=== PATIENT | male | born 1960 | race Caucasian/White ===

== ENCOUNTER 2017-10-31 22:50 | Inpatient (IN) | payer MEDICARE ==
[~2017-10-31] VITALS: Ht 175.3 cm; Wt 78.7 kg
[~2017-10-31 22:50] MED LIST: ASPI325T; BACT800T5 PO; LORC10TA PO; ORPH100T PO; PRED10; PRED20 PO; TAB-TAB PO; TRAM50 PO
[2017-10-31 23:00] VITALS: O2SAT 98
[2017-10-31 23:03] VITALS: BP 162/77; PULSE 108; RESP 22; TEMP 98; O2SAT 97
[2017-10-31 23:07] VITALS: PULSE 115; RESP 22; O2SAT 96
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
[2017-10-31] MEDS ORDERED: RESP: ALBUTEROL 2.5 MG/IPRATROPIUM 0.5 MG NEB (SCH) INH ONE (23:15)
[2017-10-31] MEDS ORDERED: LORazepam 2 MG/ML VIAL IV PUSH ONE (23:15)
--- NOTE | 2017-10-31 23:23 | PD ---
Physical Exam Date Seen by Provider: Oct 31, 2017 Time Seen by Provider: 23:22 Narrative The patient is a 56-year-old male who was initially firewood by the mid-level provider. Please refer to the initial history, physical, diagnostic evaluation, and treatment modality plan. Data Data Last Documented VS Vital Signs Date Time Temp Pulse Resp B/P (MAP) Pulse Ox O2 Delivery O2 Flow Rate FiO2 11/01/17 01:17 98 Nasal Cannula 3.00 10/31/17 23:07 115 22 10/31/17 23:03 98.0 Orders Orders Complete Blood Count With Diff (10/31/17 23:) Comprehensive Metabolic Panel (10/31/17 23:) B-Type Natriuretic Peptide (10/31/17:) Act Partial Throm Time (Ptt) (10/31/17:) Prothrombin Time / Inr (Pt) (10/31/17:) Magnesium (Mg) (10/31/17 23:) Ckmb (Isoenzyme) Profile (10/31/17:) Troponin I (10/31/17 23:) Urinalysis - C+S If Indicated (10/31/17 23:) Blood Culture (10/31/17 23:) Iv Access Insert/Monitor (10/31/17 23:) Electrocardiogram (10/31/17:) Ecg Monitoring (10/31/17 23:) Oximetry (10/31/17 23:01) Oxygen Administration (10/31/17 23:) Chest, Single Ap (10/31/17 23:01) Albuterol-Ipratropium Neb (Duoneb Neb) (10/31/17 23:15) Lorazepam Inj (Ativan Inj) (10/31/17 23:15) Albuterol-Ipratropium Neb (Duoneb Neb) (10/31/17 23:15) Lactic Acid Sepsis Protocol (10/31/17 23:16) Morphine Inj (Morphine Inj) (10/31/17 23:45) Ondansetron Inj (Zofran Inj) (10/31/17 23:45) Resp Bipap / Cpap Non Invas Vt (10/31/17 ) Oseltamivir (Tamiflu) (11/01/17 00:00) Influenzae A/B Antigen (10/31/17 23:48) CKMB (10/31/17 23:10) CKMB% (10/31/17 23:10) Arterial Blood Gas (Abg) (11/01/17 00:37) Labs Laboratory Tests Test 10/31/17 23:10 10/31/17 23:18 11/01/17 00:37 White Blood Count 10.1 TH/MM3 Red Blood Count 4.73 MIL/MM3 Hemoglobin 13.9 GM/DL Hematocrit 38.8 % Mean Corpuscular Volume 82.1 FL Mean Corpuscular Hemoglobin 29.3 PG Mean Corpuscular Hemoglobin Concent 35.8 % Red Cell Distribution Width 14.3 % Platelet Count 226 TH/MM3 Mean Platelet Volume 7.8 FL Neutrophils (%) (Auto) 83.2 % Lymphocytes (%) (Auto) 7.9 % Monocytes (%) (Auto) 8.3 % Eosinophils (%) (Auto) 0.1 % Basophils (%) (Auto) 0.5 % Neutrophils # (Auto) 8.4 TH/MM3 Lymphocytes # (Auto) 0.8 TH/MM3 Monocytes # (Auto) 0.8 TH/MM3 Eosinophils # (Auto) 0.0 TH/MM3 Basophils # (Auto) 0.1 TH/MM3 CBC Comment DIFF FINAL Differential Comment Prothrombin Time 10.8 SEC Prothromb Time International Ratio 1.1 RATIO Activated Partial Thromboplast Time 26.8 SEC Blood Urea Nitrogen 7 MG/DL Creatinine 0.91 MG/DL Random Glucose 117 MG/DL Total Protein 7.1 GM/DL Albumin 4.2 GM/DL Calcium Level 8.5 MG/DL Magnesium Level 1.8 MG/DL Alkaline Phosphatase 74 U/L Aspartate Amino Transf (AST/SGOT) 22 U/L Alanine Aminotransferase (ALT/SGPT) 30 U/L Total Bilirubin 1.2 MG/DL Sodium Level 137 MEQ/L Potassium Level 4.3 MEQ/L Chloride Level 101 MEQ/L Carbon Dioxide Level 27.9 MEQ/L Anion Gap 8 MEQ/L Estimat Glomerular Filtration Rate 86 ML/MIN Total Creatine Kinase 205 U/L Creatine Kinase MB 1.2 NG/ML Troponin I LESS THAN 0.02 NG/ML B-Type Natriuretic Peptide 54 PG/ML Lactic Acid Level 0.9 mmol/L Blood Gas Puncture Site RT RADIAL Blood Gas Patient Temperature 98.6 Blood Gas HCO3 24 mmol/L Blood Gas Base Excess -0.4 mmol/L Blood Gas Oxygen Saturation 95 % Arterial Blood pH 7.41 Arterial Blood Partial Pressure CO2 38 mmHg Arterial Blood Partial Pressure O2 96 mmHG Arterial Blood Oxygen Content 18.6 Vol % Arterial Blood Carboxyhemoglobin 2.2 % Arterial Blood Methemoglobin 0.7 % Blood Gas Hemoglobin 13.9 G/DL Oxygen Delivery Device BiPAP Blood Gas Ventilator Setting IPAP12/EPAP5 Blood Gas Inspired Oxygen 35 % [facility] Medical Record Reviewed: Yes Supervised Visit with MARY: Yes Interpretation(s) EKG reveals sinus tachycardia with a heart rate of 108. Nonspecific T-wave changes. Laboratory Tests Test 10/31/17 23:10 10/31/17 23:18 11/01/17 00:37 White Blood Count 10.1 TH/MM3 Red Blood Count 4.73 MIL/MM3 Hemoglobin 13.9 GM/DL Hematocrit 38.8 % Mean Corpuscular Volume 82.1 FL Mean Corpuscular Hemoglobin 29.3 PG Mean Corpuscular Hemoglobin Concent 35.8 % Red Cell Distribution Width 14.3 % Platelet Count 226 TH/MM3 Mean Platelet Volume 7.8 FL Neutrophils (%) (Auto) 83.2 % Lymphocytes (%) (Auto) 7.9 % Monocytes (%) (Auto) 8.3 % Eosinophils (%) (Auto) 0.1 % Basophils (%) (Auto) 0.5 % Neutrophils # (Auto) 8.4 TH/MM3 Lymphocytes # (Auto) 0.8 TH/MM3 Monocytes # (Auto) 0.8 TH/MM3 Eosinophils # (Auto) 0.0 TH/MM3 Basophils # (Auto) 0.1 TH/MM3 CBC Comment DIFF FINAL Differential Comment Prothrombin Time 10.8 SEC Prothromb Time International Ratio 1.1 RATIO Activated Partial Thromboplast Time 26.8 SEC Blood Urea Nitrogen 7 MG/DL Creatinine 0.91 MG/DL Random Glucose 117 MG/DL Total Protein 7.1 GM/DL Albumin 4.2 GM/DL Calcium Level 8.5 MG/DL Magnesium Level 1.8 MG/DL Alkaline Phosphatase 74 U/L Aspartate Amino Transf (AST/SGOT) 22 U/L Alanine Aminotransferase (ALT/SGPT) 30 U/L Total Bilirubin 1.2 MG/DL Sodium Level 137 MEQ/L Potassium Level 4.3 MEQ/L Chloride Level 101 MEQ/L Carbon Dioxide Level 27.9 MEQ/L Anion Gap 8 MEQ/L Estimat Glomerular Filtration Rate 86 ML/MIN Total Creatine Kinase 205 U/L Creatine Kinase MB 1.2 NG/ML Troponin I LESS THAN 0.02 NG/ML B-Type Natriuretic Peptide 54 PG/ML Lactic Acid Level 0.9 mmol/L Blood Gas Puncture Site RT RADIAL Blood Gas Patient Temperature 98.6 Blood Gas HCO3 24 mmol/L Blood Gas Base Excess -0.4 mmol/L Blood Gas Oxygen Saturation 95 % Arterial Blood pH 7.41 Arterial Blood Partial Pressure CO2 38 mmHg Arterial Blood Partial Pressure O2 96 mmHG Arterial Blood Oxygen Content 18.6 Vol % Arterial Blood Carboxyhemoglobin 2.2 % Arterial Blood Methemoglobin 0.7 % Blood Gas Hemoglobin 13.9 G/DL Oxygen Delivery Device BiPAP Blood Gas Ventilator Setting IPAP12/EPAP5 Blood Gas Inspired Oxygen 35 % Last Impressions Chest X-Ray 10/31/172300 Signed Impressions: Service Date/Time: Tuesday, October 31, 2017 23:11 - CONCLUSION: Mild hyperinflation with no acute cardiac pulmonary disease. Jimmie De La Cruz MD Date/Time Source Procedure Growth Status 10/31/17 23:10 Blood Peripheral Aerobic Blood Culture Pending Received 10/31/17 23:10 Blood Peripheral Anaerobic Blood Culture Pending Received 10/31/17 23:10 Blood Peripheral Aerobic Blood Culture Pending Received 10/31/17 23:10 Blood Peripheral Anaerobic Blood Culture Pending Received 11/01/17 00:07 Nasal Aspirate Influenza Types A,B Antigen (ESVIN) - Final Positive For Flu A Antigen Complete Differential Diagnosis Differential diagnosis includes COPD exacerbation, influenza, pneumonia, bronchitis, pulmonary embolism, ARDS, pleural effusion, congestive heart failure , pulmonary edema. Narrative Course The patient was initially evaluated by the mid-level provider. Please refer to the initial history, physical, diagnostic evaluation, and treatment modality plan. Patient was personally evaluated by myself at 11:35 PM. The patient was diagnosed with the flu by Dr. Antony in [facility] earlier today. The patient shortness of breath started at 4 and has progressed. The patient does have a history of COPD and tobacco use. He does note increasing shortness of breath with a dry cough. He also complains of low back pain. He does state he has been intubated in the past. The patient's lung sounds were diminished throughout, tight, with prolonged expiratory phase. The patient was tachypneic with a respiratory rate of 32, moderate respiratory distress after duo nebs, therefore, was placed on BiPAP. The patient did improve with BiPAP, influenza screen is positive for influenza A. The patient has COPD with sirs criteria, will be admitted. Sepsis Criteria SIRS Criteria (2 or more): Heart rate over 90, RR > 20 or PaCO2 < 32 Sepsis Criteria (SIRS+source): Infect source susp/known Criteria Outcome: Meets SIRS criteria Physician Communication Physician Communication The on-call medical service was paged for admission. I discussed the patient with Dr. Mckeon who agrees with admission. Diagnosis Primary Impression: Respiratory distress Additional Impressions: COPD exacerbation Influenza Admitting Information Admitting Physician Requests: Admit Condition: Stable Armani Sheriff MD Oct 31, 2017 23:23
[2017-10-31 23:30] LABS: AUTOMATED NEUTROPHIL # 8.4 TH/MM3 (1.8-7.7); BASOPHIL # 0.1 TH/MM3 (0-0.2); BASOPHIL % 0.5 % (0.0-2.0); EOSINOPHIL % 0.1 % (0.0-4.0); HEMATOCRIT 38.8 % (39.0-51.0); HEMOGLOBIN 13.9 GM/DL (13.0-17.0); LYMPH % 7.9 % (9.0-44.0); LYMPHOCYTE # 0.8 TH/MM3 (1.0-4.8); MEAN CELL VOLUME 82.1 FL (80.0-100.0); MEAN CORPUSCULAR HEMOGLOBIN 29.3 PG (27.0-34.0); MEAN CORPUSCULAR HGB CONC 35.8 % (32.0-36.0); MEAN PLATELET VOLUME 7.8 FL (7.0-11.0); MONO % 8.3 % (0.0-8.0); MONOCYTE # 0.8 TH/MM3 (0-0.9); NEUT % 83.2 % (16.0-70.0); PLATELET COUNT 226 TH/MM3 (150-450); RED BLOOD COUNT 4.73 MIL/MM3 (4.50-5.90); RED CELL DISTRIBUTION WIDTH 14.3 % (11.6-17.2); WHITE BLOOD COUNT 10.1 TH/MM3 (4.0-11.0)
[2017-10-31 23:37] LABS: INTERNATIONAL NORMALIZED RATIO 1.1 RATIO; PROTHROMBIN TIME - PATIENT 10.8 SEC (9.8-11.6)
[2017-10-31] MEDS ORDERED: ONDANSETRON HCL 4 MG/2 ML VIAL IV PUSH ONE (23:45)
[2017-10-31] MEDS ORDERED: MORPHINE SULFATE 4 MG/ML INJ IV PUSH ONE (23:45)
[2017-10-31 23:47] LABS: ALBUMIN 4.2 GM/DL (3.4-5.0); ALT (GPT) 30 U/L (12-78); AST (GOT) 22 U/L (15-37); BICARBONATE 27.9 MEQ/L (21.0-32.0); BLOOD UREA NITROGEN 7 MG/DL (7-18); CALCIUM 8.5 MG/DL (8.5-10.1); CHLORIDE 101 MEQ/L (98-107); CREATININE 0.91 MG/DL (0.60-1.30); GLOMERULAR FILTRATION RATE 86 ML/MIN (>89); GLUCOSE,RANDOM 117 MG/DL (74-106); MAGNESIUM 1.8 MG/DL (1.5-2.5); SODIUM (NA) 137 MEQ/L (136-145)
[2017-10-31 23:51] LABS: ALKALINE PHOSPHATASE 74 U/L (45-117); TOTAL BILIRUBIN ADULT 1.2 MG/DL (0.2-1.0); TOTAL PROTEIN 7.1 GM/DL (6.4-8.2); TROPONIN I LESS THAN 0.02 NG/ML (0.02-0.05)
[2017-11-01] MEDS ORDERED: OSELTAMIVIR PHOSPHATE 75 MG CAP PO ONE
--- NOTE | 2017-11-01 00:29 | RADRPT ---
EXAM DATE/TIME: 10/31/2017 23:11 [place] COMPARISON: No previous studies available for comparison. INDICATIONS : Short of breath. MEDICAL HISTORY : None. SURGICAL HISTORY : None. ENCOUNTER: Initial ACUITY: 1 day PAIN SCORE: 0/10 LOCATION: Bilateral chest FINDINGS: A single AP portable erect view of the chest was obtained. The patient is slightly rotated. Lungs adi ear mildly hyperinflated with no confluent fractures or effusions. The heart size is within normal li mits with no perihilar edema. Overlying electrocardiogram leads and oxygen tubing are present. CONCLUSION: Mild hyperinflation with no acute cardiac pulmonary disease. Jimmie De La Cruz MD on November 01, 2017 at 0:27 Board Certified Radiologist. This report was verified electronically.
[2017-11-01 01:17] VITALS: O2SAT 98
[2017-11-01] MEDS ORDERED: ZOLP10TA3 PO (01:35)
[2017-11-01] MEDS ORDERED: LEVO500T8 PO (01:35)
[2017-11-01] MEDS ORDERED: VORT1TAB2 PO (01:35)
[2017-11-01] MEDS ORDERED: OSEL75 PO (01:37)
[2017-11-01] MEDS ORDERED: HYDR-3366 PO (01:37)
[2017-11-01] MEDS ORDERED: GABA300C5 PO (01:38)
[2017-11-01] MEDS ORDERED: RESP: ALBUTEROL 2.5 MG/3 ML NEB (PRN) INH (01:45)
[2017-11-01] MEDS ORDERED: SODIUM CHLORIDE 0.9% FLUSH 10 ML FLUSH IV FLUSH PRN (01:45)
[2017-11-01] MEDS ORDERED: LEVOFLOXACIN 750 MG TAB PO SCH (02:00)
[2017-11-01] MEDS ORDERED: HEPARIN SODIUM - SQ 10,000 UNITS/ML VIAL SQ SCH ×2 (02:00→06:00)
--- NOTE | 2017-11-01 02:01 | HHI.HP ---
HPI Service [facility] Primary Care Physician Bandar Sutton MD Admission Diagnosis Diagnoses: Travel History International Travel<30 Days: No Contact w/Intl Traveler <30 Da: No Traveled to Known Affected Are: No History of Present Illness 56-year-old male with a past medical history significant for COPD, CAD and hyperlipidemia presents to the emergency department for evaluation of shortness of breath. The patient was seen by his primary care physician yesterday afternoon where he was diagnosed with the flu and started on Tamiflu. The patient reports that he began having difficulty breathing and was severely short of breath. He reports an increase in his cough from baseline since yesterday with increased sputum production. He also describes chest pain that began when he was driving back from his PCPs office. He states the chest pain is not worse with coughing. He denies fever/chills. Denies nausea/vomiting/ diarrhea. Review of Systems Except as stated in HPI: all other systems reviewed are Neg Past Family Social History Past Medical History COPD CAD Hyperlipidemia Depression Past Surgical History Bilateral knee surgeries Cardiac catheterization with stenting 2 Tonsillectomy Reported Medications Reported Meds & Active Scripts Active Reported Gabapentin 300 Mg Cap 300 Mg PO BID [place] (Hydrocodone-Acetaminophen) 10-325 Mg Tab 1 Tab PO Q6H PRN Tamiflu (Oseltamivir Phosphate) 75 Mg Cap 75 Mg PO DAILY Trintellix (Vortioxetine) 10 Mg Tab 10 Mg PO DAILY Levofloxacin 500 Mg Tablet 500 Mg PO DAILY Zolpidem (Zolpidem Tartrate) 10 Mg Tab 10 Mg PO HS Allergies: Coded Allergies: penicillin G (Unverified Allergy, Severe, THROAT CLOSES, 04/26/17) Family History Negative for CAD/DM Social History Smokes approximately 2 cigarettes per day. Denies alcohol and illicit drugs. Physical Exam Vital Signs Vital Signs Date Time Temp Pulse Resp B/P (MAP) Pulse Ox O2 Delivery O2 Flow Rate FiO2 11/01/17 01:17 98 Nasal Cannula 3.00 10/31/17 23:07 96 Nasal Cannula 3.00 10/31/17 23:07 115 22 96 Nasal Cannula 3.00 10/31/17 23:03 98.0 108 22 162/77 (105) 97 Room Air 10/31/17 23:00 98 Nasal Cannula 2.00 Physical Exam GENERAL: male sitting up in bed in mild distress SKIN: No rashes, ecchymoses or lesions. Cool and dry. HEAD: Atraumatic. Normocephalic. No temporal or scalp tenderness. EYES: Pupils equal round and reactive. Extraocular motions intact. No scleral icterus. No injection or drainage. ENT: Nose without bleeding, purulent drainage or septal hematoma. Throat without erythema, tonsillar hypertrophy or exudate. Uvula midline. Airway patent. NECK: Trachea midline. No JVD or lymphadenopathy. Supple, nontender, no meningeal signs. CARDIOVASCULAR: Regular rate and rhythm without murmurs, gallops, or rubs. RESPIRATORY: Use of accessory muscles. Bilateral wheezes. Decreased air movement. GASTROINTESTINAL: Abdomen soft, non-tender, nondistended. No hepato-splenomegaly , or palpable masses. No guarding. MUSCULOSKELETAL: Extremities without clubbing, cyanosis, or edema. No joint tenderness, effusion, or edema noted. No calf tenderness. NEUROLOGICAL: Awake and alert. Cranial nerves II through XII intact. Motor and sensory grossly within normal limits. Normal speech. Laboratory Laboratory Tests Test 10/31/17 23:10 10/31/17 23:18 11/01/17 00:37 White Blood Count 10.1 Red Blood Count 4.73 Hemoglobin 13.9 Hematocrit 38.8 Mean Corpuscular Volume 82.1 Mean Corpuscular Hemoglobin 29.3 Mean Corpuscular Hemoglobin Concent 35.8 Red Cell Distribution Width 14.3 Platelet Count 226 Mean Platelet Volume 7.8 Neutrophils (%) (Auto) 83.2 Lymphocytes (%) (Auto) 7.9 Monocytes (%) (Auto) 8.3 Eosinophils (%) (Auto) 0.1 Basophils (%) (Auto) 0.5 Neutrophils # (Auto) 8.4 Lymphocytes # (Auto) 0.8 Monocytes # (Auto) 0.8 Eosinophils # (Auto) 0.0 Basophils # (Auto) 0.1 CBC Comment DIFF FINAL Differential Comment Prothrombin Time 10.8 Prothromb Time International Ratio 1.1 Activated Partial Thromboplast Time 26.8 Blood Urea Nitrogen 7 Creatinine 0.91 Random Glucose 117 Total Protein 7.1 Albumin 4.2 Calcium Level 8.5 Magnesium Level 1.8 Alkaline Phosphatase 74 Aspartate Amino Transf (AST/SGOT) 22 Alanine Aminotransferase (ALT/SGPT) 30 Total Bilirubin 1.2 Sodium Level 137 Potassium Level 4.3 Chloride Level 101 Carbon Dioxide Level 27.9 Anion Gap 8 Estimat Glomerular Filtration Rate 86 Total Creatine Kinase 205 Creatine Kinase MB 1.2 Troponin I LESS THAN 0.02 B-Type Natriuretic Peptide 54 Lactic Acid Level 0.9 Blood Gas Puncture Site RT RADIAL Blood Gas Patient Temperature 98.6 Blood Gas HCO3 24 Blood Gas Base Excess -0.4 Blood Gas Oxygen Saturation 95 Arterial Blood pH 7.41 Arterial Blood Partial Pressure CO2 38 Arterial Blood Partial Pressure O2 96 Arterial Blood Oxygen Content 18.6 Arterial Blood Carboxyhemoglobin 2.2 Arterial Blood Methemoglobin 0.7 Blood Gas Hemoglobin 13.9 Oxygen Delivery Device BiPAP Blood Gas Ventilator Setting IPAP12/[id number] Blood Gas Inspired Oxygen 35 Date/Time Source Procedure Growth Status 10/31/17 23:10 Blood Peripheral Aerobic Blood Culture Pending Received 10/31/17 23:10 Blood Peripheral Anaerobic Blood Culture Pending Received 11/01/17 00:07 Nasal Aspirate Influenza Types A,B Antigen (ESVIN) - Final Positive For Flu A Antigen Complete Result Diagram: 10/31/17230910/31/172309 Caprini VTE Risk Assessment Caprini VTE Risk Assessment: Mod/High Risk (score >= 2) Caprini Risk Assessment Model Point Value = 1 Point Value = 2 Point Value = 3 Point Value = 5 Age 41-60 Minor surgery BMI > 25 kg/m2 Swollen legs Varicose veins or History of unexplained or recurrent spontaneous Oral contraceptives or hormone replacement Sepsis (< 1 month) Serious lung disease, including pneumonia (< 1 month) Abnormal pulmonary function Acute myocardial infarction Congestive heart failure (< 1 month) History of inflammatory bowel disease Medical patient at bed rest Age 61-74 Arthroscopic surgery Major open surgery (> 45 min) Laparoscopic surgery (> 45 min) Malignancy Confined to bed (> 72 hours) Immobilizing plaster cast Central venous access Age >= 75 History of VTE Family history of VTE Factor V Leiden Prothrombin [id number] Lupus anticoagulant Anticardiolipin antibodies Elevated serum homocysteine Heparin-induced thrombocytopenia Other congenital or acquired thrombophilia Stroke (< 1 month) Elective arthroplasty Hip, pelvis, or leg fracture Acute spinal cord injury (< 1 month) Prophylaxis Regimen Total Risk Factor Score Risk Level Prophylaxis Regimen 0-1 Low Early ambulation 2 Moderate Order ONE of the following: *Sequential Compression Device (SCD) *Heparin 5000 units SQ BID 3-4 Higher Order ONE of the following medications: *Heparin 5000 units SQ TID *Enoxaparin/Lovenox 40 mg SQ daily (WT < 150 kg, CrCl > 30 mL/min) *Enoxaparin/Lovenox 30 mg SQ daily (WT < 150 kg, CrCl > 10-29 mL/min) *Enoxaparin/Lovenox 30 mg SQ BID (WT < 150 kg, CrCl > 30 mL/min) AND/OR *Sequential Compression Device (SCD) 5 or more Highest Order ONE of the following medications: *Heparin 5000 units SQ TID (Preferred with Epidurals) *Enoxaparin/Lovenox 40 mg SQ daily (WT < 150 kg, CrCl > 30 mL/min) *Enoxaparin/Lovenox 30 mg SQ daily (WT < 150 kg, CrCl > 10-29 mL/min) *Enoxaparin/Lovenox 30 mg SQ BID (WT < 150 kg, CrCl > 30 mL/min) AND *Sequential Compression Device (SCD) Assessment and Plan Assessment and Plan Assessment/plan: 1. Influenza Patient with positive influenza at his PCPs office this afternoon Continue Tamiflu 2. COPD exacerbation DuoNeb's IV steroids Supplemental oxygen when necessary Levaquin secondary to increased sputum production and increased cough 3. Chest pain Initial troponin negative EKG significant for sinus tachycardia, no ST segment elevations or depressions, personally reviewed ACS rule out pending; serial troponins/EKGs 4. CAD/hyperlipidemia/depression Continue home medications FEN Heart healthy diet Electrolytes: Monitor and replete when necessary Heparin Shelbi Mckeon MD Nov 01, 2017 02:01
[2017-11-01] MEDS: methylPREDNISolone SOD SUCC 125 MG/2 ML VIAL IV PUSH SCH ×2 (02:08→08:35)
[2017-11-01 02:12] VITALS: BP 131/60; O2SAT 96
[2017-11-01 03:06] VITALS: BP 131/60; PULSE 99; RESP 26; O2SAT 95
[2017-11-01] MEDS: RESP: ALBUTEROL 2.5 MG/IPRATROPIUM 0.5 MG NEB (SCH) INH ×4 (03:17→12:02)
[2017-11-01 04:17] VITALS: BP 128/66; PULSE 94; PULSE 96; RESP 20; TEMP 98.5; O2SAT 95
[2017-11-01 08:00] VITALS: BP 124/67; PULSE 96; RESP 20; TEMP 98.7; O2SAT 94
[2017-11-01 08:14] VITALS: O2SAT 96
[2017-11-01 08:48] LABS: TROPONIN I LESS THAN 0.02 NG/ML (0.02-0.05)
[2017-11-01] MEDS ORDERED: SODIUM CHLORIDE 0.9% FLUSH 10 ML FLUSH IV FLUSH SCH (09:00)
[2017-11-01] MEDS ORDERED: OSELTAMIVIR PHOSPHATE 75 MG CAP PO SCH (09:00)
--- NOTE | 2017-11-01 10:25 | HHI.PR ---
Subjective Remarks awake and alert afebrile, no difficulty swallowing, no shortness of breath good po no body aches except for usual; back pain- - on "[place]" Objective Vitals Vital Signs Date Time Temp Pulse Resp B/P (MAP) Pulse Ox O2 Delivery O2 Flow Rate FiO2 11/01/17 08:14 96 Nasal Cannula 3.00 11/01/17 08:00 98.7 96 20 124/67 (86) 94 11/01/17 04:17 98.5 94 20 128/66 (86) 95 11/01/17 04:17 96 11/01/17 04:17 Nasal Cannula 3.00 11/01/17 03:15 11/01/17 03:06 99 26 131/60 (83) 95 Nasal Cannula 3.00 11/01/17 02:12 103 16 131/60 (83) 96 Nasal Cannula 3.00 11/01/17 01:17 98 Nasal Cannula 3.00 10/31/17 23:07 96 Nasal Cannula 3.00 10/31/17 23:07 115 22 96 Nasal Cannula 3.00 10/31/17 23:03 98.0 108 22 162/77 (105) 97 Room Air 10/31/17 23:00 98 Nasal Cannula 2.00 I/O 10/31/17 10/31/17 10/31/17 11/01/17 11/01/17 11/01/17 07:00 15:00 23:00 07:00 15:00 23:00 Output Total 450 ml Balance -450 ml Output Urine Total 450 ml Result Diagram: 10/31/170 10/31/172309 Imaging Last Impressions Chest X-Ray 10/31/172300 Signed Impressions: Service Date/Time: Tuesday, October 31, 2017 23:11 - CONCLUSION: Mild hyperinflation with no acute cardiac pulmonary disease. Jimmie De La Cruz MD Objective Remarks awake and alert, anicteric lungs- celar no rales no wheezes regular rhythm abdomen soft, nontender extremities no edema A/P Assessment and Plan Assessment/plan: 1. Influenza Patient with positive influenza at his PCPs office this afternoon Continue Tamiflu 2. COPD exacerbation- exam- no wheezing- up and ambulating DuoNeb's IV steroids- change to po Prednisone short course 3 days Supplemental oxygen when necessary Levaquin secondary to increased sputum production and increased cough 3. Chest pain- resolved Initial troponin negative EKG significant for sinus tachycardia, no ST segment elevations or depressions, personally reviewed 4. CAD/hyperlipidemia/depression Continue home medications FEN Heart healthy diet Electrolytes: Monitor and replete when necessary Heparin HOme today OP ff up with PCP Jennifer Robledo MD Nov 01, 2017 10:25
[2017-11-01] MEDS ORDERED: ACETAMINOPHEN/HYDROcodone 325 MG/10 MG TAB PO PRN (10:30)
[2017-11-01] MEDS ORDERED: PRED20 PO (10:37)
[2017-11-01] MEDS ORDERED: Albuterol Hfa Inh INH (10:37)
[2017-11-01] MEDS ORDERED: SPIRCAP INH (10:37)
[2017-11-01] MEDS ORDERED: ALBUTEROL SULFATE 90 MCG/ACT HFA 8 GM INHALER INH SCH (12:00)
[2017-11-01] MEDS ORDERED: TIOTROPIUM BROMIDE 18 MCG INH INH SCH (13:00)
[2017-11-01 13:15] LABS: TROPONIN I LESS THAN 0.02 NG/ML (0.02-0.05)
--- NOTE | 2017-11-01 18:44 | EKG ---
Date Performed: 11/01/2017 Time Performed: 07:22:36 PTAGE: 56 years EKG: Sinus rhythm Normal ECG Since the prior tracing, there has been no significant change PREVIOUS TRACING : 10/31/17 @2258 DOCTOR: Andra Khan Interpretating Date/Time 11/01/2017 18:42:51
--- NOTE | 2017-11-01 18:44 | EKG ---
Date Performed: 10/31/2017 Time Performed: 22:58:38 PTAGE: 56 years EKG: SINUS TACHYCARDIA ABNORMAL RHYTHM ECG Since the prior tracing, there has been no significan t change PREVIOUS TRACING : 09/25/2011 00.18 DOCTOR: Andra Khna Interpretating Date/Time 11/01/2017 18:42:16
--- NOTE | 2017-11-01 18:45 | EKG ---
Date Performed: 11/01/2017 Time Performed: 10:42:53 PTAGE: 56 years EKG: Sinus rhythm POSSIBLE LEFT ATRIAL ENLARGEMENT NONSPECIFIC T-WAVE ABNORMALITY BORDERLINE ECG Since the prior joe ng, there has been no significant change PREVIOUS TRACING : 11/01/2017 07.22 DOCTOR: Andra Khan Interpretating Date/Time 11/01/2017 18:43:01
[2017-11-01] MEDS ORDERED: predniSONE 20 MG TAB PO SCH (21:00)
== END 2017-11-01 12:54 | disposition home or self-care (01) | DRG 194 ==
LOC: NEPC 22:50 → NEDA 11-01 01:55 → OBSVTOIN 11-01 02:04 → N04A 11-01 03:50
PROVIDERS: ADMIT Internal Medicine; ATTEND Internal Medicine
PROC: 5A09357 Assistance with Respiratory Ventilation, Less than 24 Consecutive Hours, Continuous Positive Airway Pressure (ICD-10-PCS; principal; 2017-10-31)
DX: J10.1 Influenza due to other identified influenza virus with other respiratory manifestations (principal); J44.1 Chronic obstructive pulmonary disease with (acute) exacerbation; R00.0 Tachycardia, unspecified; F32.9 Major depressive disorder, single episode, unspecified; E78.5 Hyperlipidemia, unspecified; I25.10 Atherosclerotic heart disease of native coronary artery without angina pectoris; I25.2 Old myocardial infarction; F17.210 Nicotine dependence, cigarettes, uncomplicated; M54.5 Low back pain
CPT/HCPCS: 36600; 71045; 80053; 82550; 82552; 82805; 83605; 83735; 83880; 84484; 85025; 85610; 85730; 87040; 87804; 93005; 94640; 94664; 96374; 96375; 96376; J1644; J2060; J2270; J2405; J2930